=== PATIENT | female | born 2000 | race Caucasian/White ===

== ENCOUNTER 2022-12-06 18:57 | Emergency (ER) | payer BC ==
[2022-12-06] MEDS: Albuterol/Ipratropium 3.0-0.5 MG/3 ML Neb Soln NEB ONE (19:20)
[2022-12-06] MEDS: predniSONE 20 MG Tab PO ONE (19:57)
[2022-12-06] MEDS: Take Home: Albuterol 18 GM Inhaler, 1 Inhaler Pack INH PRN (20:02)
== END 2022-12-06 20:10 | disposition home or self-care (01) ==
LOC: VM.ED 18:57
DX: J45.21 Mild intermittent asthma with (acute) exacerbation (principal); Z91.048 Other nonmedicinal substance allergy status; Z79.899 Other long term (current) drug therapy
CPT/HCPCS: 94640; 99283; 99284; A9270-GY; J7512; J7620-GY